=== PATIENT | male | born 1975 | race Caucasian/White ===

== ENCOUNTER 2021-06-04 23:07 | Emergency (ER) | payer BC ==
[2021-06-04] MEDS ORDERED: solu-MEDROL 125 MG, Sterile H2O 10 ml 2 ML IV ONE ×2 (23:23)
[2021-06-04] MEDS ORDERED: Pepcid 20 MG VIAL IV ONE ×2 (23:23→23:30)
[2021-06-04] MEDS ORDERED: solu-MEDROL ONE (23:30)
[2021-06-04] MEDS ORDERED: Sterile H2O 10 ml IJ ONE (23:30)
--- NOTE | 2021-06-05 00:05 | ERPHSYRPT ---
- History of Present Illness Time Seen by Provider: 06/04/21 23:10 Source: patient Exam Limitations: no limitations Patient Subjective Stated Complaint: Patient states " I got stung by a wasp around 2030 and I took a shower around 5 and then I started itching like crazy and I noticed a head to toe rash and then my lip started to swell." Triage Nursing Assessment: Patient arrived to ED and ambulated back to room without difficulty. Patient A/O times 4. Patient able to follow instructions without difficulty. Patient noted with faint, raised, red rash over entire torso and bilateral flanks. Patient noted with same rash to belt line and bilateral groins and upper and bilateral extremities. No broken skin noted but patient states it just itches like crazy. Slight edema noted to upper lip and right side of cheek where wasp had stung him was on right upper cheek. Patient denies any trouble breathing or swallowing. Patient denies any SOB or chest pain. Patient's tongue with no swelling. Patient stated " I have been stung before and have never reacted like this. Physician History: Patient is a 45-year-old male presents to our ED for evaluation of diffuse urticarial pruritic rash. Patient states he was stung by a wasp at approximately 830. Patient developed small swelling under his left eye where the sting occurred. Patient later took a shower at approximately 915. After his shower he began to itch and observe the development of a diffuse pruritic urticarial rash. Patient states his lip became slightly swollen. No respiratory distress. No wheezing. Patient took 50 mg of Benadryl at 930. Patient states his symptoms have not progressed. The patient was concerned regarding his symptoms and therefore did not want to go to sleep. Patient is here for evaluation and treatment. No associated chest pain or shortness of breath. No nausea vomiting or diaphoresis. No fever. Patient otherwise feels well. He voices no other complaints or concerns at this time. Timing/Duration: today Severity: moderate Modifying Factors: Improves With: medication Associated Symptoms: denies symptoms Allergies/Adverse Reactions: erythromycin base Allergy (Mild, Verified 06/04/21 23:30) Nausea and Vomiting tetracycline Allergy (Mild, Verified 06/04/21 23:30) Nausea and Vomiting morphine Adverse Reaction (Intermediate, Verified 06/04/21 23:30) Shortness of Breath Hx Tetanus, Diphtheria Vaccination/Date Given: No Hx Influenza Vaccination/Date Given: No Hx Pneumococcal Vaccination/Date Given: No Immunizations Up to Date: Yes Travel Risk - International Travel Have you traveled outside of the country in past 3 weeks: No - Coronavirus Screening Are you exhibiting any of the following symptoms?: No Close contact with a COVID-19 positive Pt in past 14-21 Days: No - Vaccine Status Have you recieved a Covid-19 vaccination: Yes Investigative Reporter: [employer] - Vaccination Dates Date of 2cond Vaccination (if applicable): 01/10/21 - Review of Systems Constitutional: No Symptoms, No Fever, No Chills Eyes: No Symptoms Ears, Nose, & Throat: No Symptoms Respiratory: No Symptoms, No Cough, No Dyspnea Cardiac: No Symptoms, No Chest Pain, No Edema, No Syncope Abdominal/Gastrointestinal: No Symptoms, No Abdominal Pain, No Nausea, No Vomiting, No Diarrhea Genitourinary Symptoms: No Symptoms, No Dysuria Musculoskeletal: No Symptoms, No Back Pain, No Neck Pain Skin: No Symptoms, No Rash Neurological: No Symptoms, No Dizziness, No Focal Weakness, No Sensory Changes Psychological: No Symptoms Endocrine: No Symptoms Hematologic/Lymphatic: No Symptoms Immunological/Allergic: No Symptoms All Other Systems: Reviewed and Negative - Past Medical History Pertinent Past Medical History: Yes Neurological History: No Pertinent History ENT History: No Pertinent History Cardiac History: No Pertinent History Respiratory History: No Pertinent History Endocrine Medical History: No Pertinent History Musculoskeletal History: No Pertinent History GI Medical History: Gallbladder Disease History: No Pertinent History Psycho-Social History: No Pertinent History Male Reproductive Disorders: No Pertinent History - Past Surgical History Past Surgical History: Yes Neuro Surgical History: No Pertinent History Cardiac: No Pertinent History Respiratory: No Pertinent History Gastrointestinal: Appendectomy, Cholecystectomy Genitourinary: No Pertinent History Musculoskeletal: No Pertinent History Male Surgical History: No Pertinent History - Social History Smoking Status: Former smoker How long have you smoked: 24 Exposure to second hand smoke: No Drug Use: none Patient Lives Alone: No - Nursing Vital Signs Nursing Vital Signs: Initial Vital Signs Temperature 98.3 F 06/04/21 23:07 Pulse Rate 81 06/04/21 23:07 Respiratory Rate 18 06/04/21 23:07 Blood Pressure 136/80 06/04/21 23:07 O2 Sat by Pulse Oximetry 99 06/04/21 23:07 Pain Scale Pain Intensity 0 - Physical Exam General Appearance: no apparent distress, alert Eye Exam: PERRL/EOMI, eyes nml inspection Ears, Nose, Throat Exam: normal ENT inspection, TMs normal, pharynx normal, moist mucous membranes Neck Exam: normal inspection, non-tender, supple, full range of motion Respiratory Exam: normal breath sounds, lungs clear, airway intact, No respiratory distress, No prolonged expirations, No crackles/rales, No wheezing, No stridor Cardiovascular Exam: regular rate/rhythm, normal heart sounds, normal peripheral pulses Gastrointestinal/Abdomen Exam: soft, normal bowel sounds, No tenderness, No mass Back Exam: normal inspection, normal range of motion, No CVA tenderness, No vertebral tenderness Extremity Exam: normal inspection, normal range of motion, pelvis stable Neurologic Exam: alert, oriented x 3, cooperative, normal mood/affect, nml cerebellar function, nml station & gait, sensation nml, No motor deficits Skin Exam: normal color, warm, dry, other (Diffuse urticarial rash on face trunk extremities. Overlying soft tissue intact. No superimposed cellulitis.), No rash Lymphatic Exam: No adenopathy SpO2 Interpretation: normal SpO2: 98 O2 Delivery: Room Air - Course Nursing assessment & vital signs reviewed: Yes Ordered Tests: Active Orders 24 hr Category Date Time Status IV Insertion STAT Care 06/04/21 23:23 Active Pulse Oximetry (ED) STAT Care 06/04/21 23:23 Active Medication Summary Discontinued Medications Generic Name Dose Route Start Last Admin Trade Name Alex PRN Reason Stop Dose Admin Methylprednisolone Sodium 0 mg 06/04/21 23:23 06/04/21 23:31 Succinate 125 mg/ Sterile IV 06/04/21 23:24 125 mg Water 2 ml STAT ONE Administration Famotidine 20 mg 06/04/21 23:23 06/04/21 23:32 Pepcid 20 Mg Vial IV 06/04/21 23:24 20 mg STAT ONE Administration Famotidine Confirm 06/04/21 23:30 Pepcid 20 Mg Vial Administered 06/04/21 23:31 Dose 20 mg IV .STK-MED ONE Methylprednisolone Sodium Succinate Confirm 06/04/21 23:30 Solu-Medrol Administered 06/04/21 23:31 Dose 125 mg .ROUTE .STK-MED ONE Sterile Water Confirm 06/04/21 23:30 Sterile H2o 10 Ml Administered 06/04/21 23:31 Dose 10 ml IJ .STK-MED ONE - Progress Progress: improved Progress Note: Patient reassessed. Pruritus resolved. Urticarial rash resolved. Patient is currently asymptomatic. He is requesting discharge. Will discharge patient home. Patient will be discharged with a prescription for Pepcid, steroids and EpiPen. Patient voiced no other complaints concerns at this time. He agrees to follow- up with primary care doctor within 48 hours for evaluation. Portions of this note were created with voice recognition technology. There may be grammatical, spelling, punctuation or sound alike errors 06/05/21 00:40 Counseled pt/family regarding: diagnosis, need for follow-up - Departure Departure Disposition: Home Clinical Impression: Urticarial rash, Allergic reaction, Pruritus, Insect sting allergy, current reaction Condition: Stable Critical Care Time: No Referrals: I[facility] SPEED OPERATOR [Primary Care Provider] - Additional Instructions: Discharge/Care Plan ANA MARIAVASQUEZ JUNIOR was seen on 06/05/21 in the Emergency Room. The patient was counseled regarding Diagnosis,Lab results, Imaging studies, need for follow up and when to return to the Emergency Room. Prescriptions given: Discharge Note I have spoken with the patient and/or caregivers. I have explained the patient's condition, diagnosis and treatment plan based on the information available to me at this time. I have answered the patient's and/or caregiver's questions and addressed any concerns. The patient and/or caregivers have as good understanding of the patient's diagnosis, condition and treatment plan as can be expected at this point. The vital signs have been stable. The patient's condition is stable and appropriate for discharge from the emergency department. The patient will pursue further outpatient evaluation with the primary care physician or other designated or consulting physician as outlined in the discharge instructions. The patient and/or caregivers are agreeable to this plan of care and follow-up instructions have been explained in detail. The patient and/or caregivers have received these instruction. The patient/and or caregivers are aware that any significant change in condition or worsening of symptoms should prompt an immediate return to this or the closest emergency department or call 911. Prescriptions: Prednisone 20 mg [Deltasone 20 mg] 40 mg PO DAILY 3 Days #6 tablet Epinephrine [Epipen] 0.3 mg IM DAILY 1 Days #2 dose Famotidine 20 mg PO BID 7 Days #14 tablet
[2021-06-05 00:52] VITALS: BP 125/86; PULSE 76; O2SAT 97
== END 2021-06-05 01:03 | disposition home or self-care (01) ==
LOC: ED 23:07
DX: L50.0 Allergic urticaria (principal); L29.9 Pruritus, unspecified; S30.861A Insect bite (nonvenomous) of abdominal wall, initial encounter; W57.XXXA Bitten or stung by nonvenomous insect and other nonvenomous arthropods, initial encounter
CPT/HCPCS: 36000; 94760; 96374; 96375; 99284; J2930